=== PATIENT | female | born 1945 | race Caucasian/White ===

== ENCOUNTER 2020-09-24 08:22 | Outpatient (REF) | payer MEDICARE, OTHER, SELFPAY ==
--- NOTE | ~2020-09-24 | MM_ITS ---
EXAMINATION: MM SCREENING DIGITAL BREAST TOMOSYNTHESIS, BILATERAL CLINICAL INFORMATION: Screening. Asymptomatic. 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 COMPARISON: Mammography: 10/04/2019, 10/15/2018, 10/13/2017 TECHNIQUE: Digital breast tomosynthesis is performed in both the craniocaudal and mediolateral oblique views along with computer-aided detection (CAD). Synthesized 2D images are generated from the tomosynthesis. Additional left exaggerated CC view is provided. FINDINGS: There are scattered areas of fibroglandular density (ACR BI-RADS breast composition Category b). Parenchymal pattern is similar to prior studies. There is stable minor scarring, right surgical clips, and right biopsy clip marker mid upper outer quadrant. Neither breast shows developing density or interval mass or architectural abnormality. There is chronic nodularity mid upper right breast slightly decreased in size. No abnormal calcific lesions. The axilla are unremarkable. No significant changes. MM/MM tomosynthesis screening BI IMPRESSION: No significant changes from prior studies. ASSESSMENT: BI-RADS 2: Benign RECOMMENDATION: Routine annual mammography screening. This patient's information was entered into a reminder system with a target due date for their next mammogram.
== END 2020-09-24 08:23 | disposition home or self-care (01) ==
LOC: HO.MAMMO 08:22
PROVIDERS: Visit Provider Internal Medicine Hematology & Oncology
DX: Z12.31 Encounter for screening mammogram for malignant neoplasm of breast (principal)
CPT/HCPCS: 77063; 77067

== ENCOUNTER 2021-10-02 07:30 | Outpatient (REF) | payer MEDICARE, OTHER, SELFPAY ==
--- NOTE | ~2021-10-02 | MM_ITS ---
EXAMINATION: MM SCREENING DIGITAL BREAST TOMOSYNTHESIS, BILATERAL CLINICAL INFORMATION: Screening. Asymptomatic. Left lumpectomy for DCIS, 2017. Right lumpectomy for DCIS, 2013. COMPARISON: Mammography: 09/24/2020, 10/04/2019, 10/15/2018, 10/13/2017 TECHNIQUE: Digital breast tomosynthesis is performed in both the craniocaudal and mediolateral oblique views along with computer-aided detection (CAD). Synthesized 2D images are generated from the tomosynthesis. FINDINGS: There are scattered areas of fibroglandular density (ACR BI-RADS breast composition Category b). There is minor bilateral scarring and right surgical clips of right biopsy clip marker upper outer quadrant again noted consistent with the prior procedure history. There are scattered shifting fibroglandular parenchymal densities from year to year related to variation in positioning. No developing density or significant changes. Chronic nodularity outer right breast is decreased since 2018. There is no significant mass and no abnormal calcifications. The axilla are unremarkable. MM/MM tomosynthesis screening BI IMPRESSION: No mammographic evidence of malignancy. ASSESSMENT: BI-RADS 2: Benign RECOMMENDATION: Routine annual mammography screening. This patient's information was entered into a reminder system with a target due date for their next mammogram.
== END 2021-10-02 07:31 | disposition home or self-care (01) ==
LOC: HO.MAMMO 07:30
PROVIDERS: PCP Family Medicine; Visit Provider Internal Medicine Medical Oncology
DX: Z12.31 Encounter for screening mammogram for malignant neoplasm of breast (principal)
CPT/HCPCS: 77063; 77067

== ENCOUNTER 2022-08-11 08:32 | Outpatient (REF) | payer MEDICARE, OTHER, SELFPAY ==
--- NOTE | ~2022-08-11 | XR_ITS ---
EXAMINATION: Bilateral AP knee standing. Bilateral knee. CLINICAL INDICATIONS: Bilateral knee pain. COMPARISON: None. TECHNIQUE: AP bilateral knee standing. 2 views each knee. FINDINGS: Bilateral AP knee: There is total bilateral knee prosthesis with prosthetic components in satisfactory alignment. No visible prosthetic loosening or any prosthetic fracture. The soft tissues are normal. Right knee: There is a total right knee prosthesis with prosthetic components in satisfactory alignment. No visible acute fracture or dislocation seen. The soft tissues are normal. Left knee: There is a total left knee prosthesis with the prosthetic components in satisfactory alignment. No visible acute fracture or dislocation seen. The soft tissues are normal. 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 No periprosthetic fracture or loosening seen. No visible acute fracture, dislocation or soft tissue swelling seen.
--- NOTE | ~2022-08-11 | XR_ITS ---
EXAMINATION: Bilateral AP knee standing. Bilateral knee. CLINICAL INDICATIONS: Bilateral knee pain. COMPARISON: None. TECHNIQUE: AP bilateral knee standing. 2 views each knee. FINDINGS: Bilateral AP knee: There is total bilateral knee prosthesis with prosthetic components in satisfactory alignment. No visible prosthetic loosening or any prosthetic fracture. The soft tissues are normal. Right knee: There is a total right knee prosthesis with prosthetic components in satisfactory alignment. No visible acute fracture or dislocation seen. The soft tissues are normal. Left knee: There is a total left knee prosthesis with the prosthetic components in satisfactory alignment. No visible acute fracture or dislocation seen. The soft tissues are normal. 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 No periprosthetic fracture or loosening seen. No visible acute fracture, dislocation or soft tissue swelling seen.
--- NOTE | ~2022-08-11 | XR_ITS ---
EXAMINATION: Bilateral AP knee standing. Bilateral knee. CLINICAL INDICATIONS: Bilateral knee pain. COMPARISON: None. TECHNIQUE: AP bilateral knee standing. 2 views each knee. FINDINGS: Bilateral AP knee: There is total bilateral knee prosthesis with prosthetic components in satisfactory alignment. No visible prosthetic loosening or any prosthetic fracture. The soft tissues are normal. Right knee: There is a total right knee prosthesis with prosthetic components in satisfactory alignment. No visible acute fracture or dislocation seen. The soft tissues are normal. Left knee: There is a total left knee prosthesis with the prosthetic components in satisfactory alignment. No visible acute fracture or dislocation seen. The soft tissues are normal. 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 No periprosthetic fracture or loosening seen. No visible acute fracture, dislocation or soft tissue swelling seen.
== END 2022-08-11 08:33 | disposition home or self-care (01) ==
LOC: HO.HOSX 08:32
PROVIDERS: Visit Provider Orthopaedic Surgery
DX: T84.84XA Pain due to internal orthopedic prosthetic devices, implants and grafts, initial encounter (principal); Z96.653 Presence of artificial knee joint, bilateral
CPT/HCPCS: 73560; 73565; 99202

== ENCOUNTER → 2022-09-08 09:27 | Outpatient (BNVA) | payer MEDICARE, OTHER, SELFPAY | PROVIDERS: PCP Registered Nurse; Visit Provider Internal Medicine | DX: M25.561 Pain in right knee (principal); M25.562 Pain in left knee; G89.28 Other chronic postprocedural pain; Z96.653 Presence of artificial knee joint, bilateral | CPT/HCPCS: 99202 ==

== ENCOUNTER 2022-10-03 08:49 | Outpatient (REF) | payer MEDICARE, OTHER, SELFPAY ==
--- NOTE | ~2022-10-03 | MM_ITS ---
EXAMINATION: MM SCREENING DIGITAL BREAST TOMOSYNTHESIS, BILATERAL CLINICAL INFORMATION: Screening. Asymptomatic. The patient has a history of bilateral breast cancer. Surgery was performed for DCIS of the left breast in 2017 and for DCIS of the right breast in 2012. COMPARISON: Mammography: This study is compared with prior exams dating back to 2018. TECHNIQUE: Digital breast tomosynthesis is performed in both the craniocaudal and mediolateral oblique views along with computer-aided detection (CAD). Synthesized 2D images are generated from the tomosynthesis. FINDINGS: There are scattered areas of fibroglandular density (ACR BI-RADS breast composition Category b). There are no significant masses, abnormal calcifications, or other abnormalities. There are surgical clips in the deep third of the right breast in the posterior nipple line. There is a tissue marker associated with benign oval mass in the upper-outer quadrant of the right breast. MM/MM tomosynthesis screening BI IMPRESSION: No mammographic evidence of malignancy. ASSESSMENT: BI-RADS BI-RADS 2 - Benign Findings RECOMMENDATION: Routine annual mammography screening. 1 year F/U This examination should not preclude the clinical evaluation of a suspicious palpable abnormality. This patient's information was entered into a reminder system with a target due date for their next mammogram.
== END 2022-10-03 08:50 | disposition home or self-care (01) ==
LOC: HO.MAMMO 08:49
PROVIDERS: Absent Provider Internal Medicine Medical Oncology; PCP Registered Nurse; Visit Provider Registered Nurse
DX: Z12.31 Encounter for screening mammogram for malignant neoplasm of breast (principal)
CPT/HCPCS: 77063; 77067

== ENCOUNTER → 2022-10-03 09:30 | Outpatient (BNV) | payer MEDICARE, OTHER, SELFPAY | PROVIDERS: Absent Provider Internal Medicine Medical Oncology; PCP Registered Nurse; Visit Provider Radiology Diagnostic Radiology | DX: Z12.31 Encounter for screening mammogram for malignant neoplasm of breast (principal) | CPT/HCPCS: 77063; 77067 ==

== ENCOUNTER 2023-10-09 08:29 | Outpatient (REF) | payer MEDICARE, OTHER, SELFPAY ==
--- NOTE | ~2023-10-09 | MM_ITS ---
EXAMINATION: MM SCREENING DIGITAL BREAST TOMOSYNTHESIS, BILATERAL CLINICAL INFORMATION: Screening. Asymptomatic. The patient has a history of bilateral breast cancer with left DCIS diagnosed in 2017 and right DCIS diagnosed in 2013. COMPARISON: Mammography: This study is compared with prior exams dating back to TECHNIQUE: Digital breast tomosynthesis is performed in both the craniocaudal and mediolateral oblique views along with computer-aided detection (CAD). Synthesized 2D images are generated from the tomosynthesis. FINDINGS: There are scattered areas of fibroglandular density (ACR BI-RADS breast composition Category b). There are no significant masses, abnormal calcifications, or other abnormalities. There are postsurgical changes in each breast. There is a biopsy tissue marker associated with a subcentimeter, benign mass in the upper outer quadrant of the right breast. MM/MM tomosynthesis screening BI IMPRESSION: No mammographic evidence of malignancy. ASSESSMENT: BI-RADS BI-RADS 2 - Benign Findings RECOMMENDATION: Routine annual mammography screening. 1 year F/U This examination should not preclude the clinical evaluation of a suspicious palpable abnormality. This patient's information was entered into a reminder system with a target due date for their next mammogram.
== END 2023-10-09 08:30 | disposition home or self-care (01) ==
LOC: HO.MAMMO 08:29
PROVIDERS: Absent Provider Internal Medicine Medical Oncology; PCP Registered Nurse; Visit Provider Registered Nurse
DX: Z12.31 Encounter for screening mammogram for malignant neoplasm of breast (principal)
CPT/HCPCS: 77063; 77067

== ENCOUNTER → 2023-10-09 09:00 | Outpatient (BNV) | payer MEDICARE, OTHER, SELFPAY | PROVIDERS: Absent Provider Internal Medicine Medical Oncology; PCP Registered Nurse; Visit Provider Radiology Diagnostic Radiology | DX: Z12.31 Encounter for screening mammogram for malignant neoplasm of breast (principal) | CPT/HCPCS: 77063; 77067 ==

== ENCOUNTER 2024-10-14 08:40 | Outpatient (REF) | payer MEDICARE, OTHER, SELFPAY | END 2024-10-14 08:41 | disposition home or self-care (01) | LOC: HO.MAMMO 08:40 | PROVIDERS: Absent Provider Internal Medicine Medical Oncology; PCP Registered Nurse | DX: Z12.31 Encounter for screening mammogram for malignant neoplasm of breast (principal) | CPT/HCPCS: 77063; 77067 ==

== ENCOUNTER → 2024-10-14 09:00 | Outpatient (BNV) | payer MEDICARE, OTHER, SELFPAY | PROVIDERS: Absent Provider Internal Medicine Medical Oncology; PCP Registered Nurse; Visit Provider Internal Medicine | DX: Z12.31 Encounter for screening mammogram for malignant neoplasm of breast (principal) | CPT/HCPCS: 77063; 77067 ==